=== PATIENT | female | born 1965 | race African-American/Black ===

== ENCOUNTER 2022-11-07 09:32 | Emergency (ER) | payer MEDICARE, MEDICAID ==
[~2022-11-07] VITALS: Ht 165.1 cm; Wt 75.0 kg
[2022-11-07 09:34] VITALS: BP 184/94
[2022-11-07 12:41] LABS: BASOPHILS % 0.8 % (0.0-2.0); HEMATOCRIT. 43.8 % (36.0-48.0); HEMOGLOBIN. 15.4 g/dL (12.0-16.0); MEAN CORPUSCULAR HEMOGLOBIN 29.7 pg (28.0-32.0); MEAN CORPUSCULAR VOLUME 84.7 fL (81.0-99.0); MEAN PLATELET VOLUME 8.8 fl (7.4-10.4); MONOCYTES % 3.2 % (2.0-8.0); PLATELET 155 x1000/uL (130-400); RED BLOOD CELL COUNT 5.18 mill/uL (4.2-5.4); RED CELL DISTRIBUTION WIDTH 15.9 % (11.6-14.6)
[2022-11-07 12:48] LABS: CHLORIDE 97 mEq/L (98-107)
[2022-11-07] MEDS ORDERED: KETOROLAC 60MG/2ML VIAL IM ONE (14:45)
== END 2022-11-07 15:37 | disposition home or self-care (01) ==
LOC: ER 09:32
DX: R51.9 Headache, unspecified (principal); G35 Multiple sclerosis; Z20.822 Contact with and (suspected) exposure to COVID-19
CPT/HCPCS: 36415; 70450; 71045; 80053; 83880; 84484; 85025; 87426; 93005; 96372; 99285; C9803; J1885